=== PATIENT | female | born 1990 | race Caucasian/White ===

== ENCOUNTER 2016-08-20 09:15 | Emergency (ER) | payer SELFPAY ==
[2016-08-20 09:31] VITALS: BP 133/85; PULSE 83; TEMP 98.3; BMI 38.4
[2016-08-20] MEDS ORDERED: predniSONE 20 MG TABLET (UD) PO ONE (11:02)
[2016-08-20] MEDS ORDERED: predniSONE 20 MG TABLET (UD) ONE (11:05)
--- NOTE | 2016-08-20 11:07 | PDOC ---
History of Present Illness - General Chief Complaint: Respiratory Stated Complaint: COUGH, CONGESTION Time Seen by Provider: 08/20/16 10:23 History Source: Patient Exam Limitations: No Limitations - History of Present Illness Initial Comments: 08/20/16 11:03 Patient came to emergency department with complaints of cough, nasal congestion , itchiness to eyes and mild facial swelling. States suffers from pollen/ seasonal ALLERGIES and has progressively become worse. Denies fever, denies purulent drainage from nose, has a moist nonproductive cough but also feels is related to posterior sinus drainage. Is taking Claritin with minimal resolved Timing/Duration: reports: changing over time, getting worse Severity: reports: moderate Associated Symptoms: reports: chest pain/soreness, facial pain, fever/chills, lightheadedness Past History - Travel Traveled outside of the country in the last 30 days: No Close contact w/someone who was outside of country & ill: No - Past Medical History Allergies/Adverse Reactions: Allergies Allergy/AdvReac Type Severity Reaction Status Date / Time No Known Allergies Allergy Verified 08/20/16 09:28 Home Medications: Ambulatory Orders Prednisone [Deltasone -] 20 mg PO BID #10 tablet 08/20/16 - Psycho/Social/Smoking Cessation Hx Anxiety: No Suicidal Ideation: No Smoking History: Never smoked Have you smoked in the past 12 months: No Information on smoking cessation initiated: No Hx Alcohol Use: No Drug/Substance Use Hx: No Substance Use Type: None Review of Systems - Review of Systems Able to Perform ROS?: Yes Is the patient limited Italian proficient: Yes Constitutional: Yes: Symptoms Reported, See HPI, Malaise. No: Fever HEENTM: Yes: Symptoms Reported, Nose Congestion, Throat Pain (with post nasal drainage ) Respiratory: Yes: Symptoms reported, See HPI, Cough. No: Wheezing (moist non productive ) Cardiac (ROS): No: Symptoms Reported Integumentary: Yes: Symptoms Reported, See HPI Neurological: Yes: Symptoms reported, See HPI, Headache (frontal ) All Other Systems: Reviewed and Negative *Physical Exam - Vital Signs Last Vital Signs Temp Pulse Resp BP Pulse Ox 98.3 F 83 18 133/85 98 08/20/16 09:29 08/20/16 09:29 08/20/16 09:29 08/20/16 09:29 08/20/16 09:29 - Physical Exam General Appearance: Yes: Nourished, Appropriately Dressed, Apparent Distress, Mild Distress, Moderate Distress HEENT: positive: GIO (glassy ), Normal ENT Inspection, TMs Normal (congested but landmarks easily visualize ), Pharynx Normal (with clear drainafge ), Nasal Congestion, Rhinorrhea, Sinus Tenderness Neck: positive: Tender, Supple Respiratory/Chest: positive: Lungs Clear, Normal Breath Sounds. negative: Wheezing Cardiovascular: positive: Regular Rate Gastrointestinal/Abdominal: positive: Normal Bowel Sounds, Soft. 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 *DC/Admit/Observation/Transfer Diagnosis at time of Disposition: Allergic rhinitis Qualifiers: Allergic rhinitis trigger: other Allergic rhinitis seasonality: unspecified seasonality Qualified Code(s): J30.89 - Other allergic rhinitis - Discharge Dispostion Disposition: HOME Condition at time of disposition: Stable Admit: No - Prescriptions Prescriptions: Prednisone [Deltasone -] 20 mg PO BID #10 tablet - Referrals Referrals: Epi Clark MD [Primary Care Provider] - - Patient Instructions Printed Discharge Instructions: DI for Allergic Rhinitis Additional Instructions: Rest, drink lots of fluids: Teas, water, soups Saltwater gargles. Consider humidifier in room at night Steamy showers/seem to face break up mucus Avoid contact with allergens, exposure to pollens, close windows on a windy day Lots of handwashing and good hygiene Continue [id number] medications for symptomatic relief- may use allergic eyedrops for itching I Continue antihistamines daily until pollen season is over; Zyrtec, Claritin, Neida during the daytime and Benadryl at nighttime as will make sleepy Tylenol or Motrin for fever and pain Continue prednisone 40 mg daily for the next 5 days Followup with private physician in one to 2 days as needed Consider following up with an j2ee android developer/drink mixer for skin testing and possible allergy shots Return to emergency department for worsened symptoms, fevers, dehydration - Post Discharge Activity Work/School Note: Back to Work
== END 2016-08-20 11:10 | disposition home or self-care (01) ==
LOC: JERFT 09:15
DX: J30.89 Other allergic rhinitis (principal)
CPT/HCPCS: 99281-25